=== PATIENT | female | born 1965 | race Caucasian/White ===

== ENCOUNTER 2020-02-26 08:34 | Outpatient (CLI) | payer OTHER, MEDICAID, SELFPAY ==
--- NOTE | 2020-02-26 08:55 | XR_ITS ---
WS: [id number] LATERAL LUMBAR SPINE: 3 view. Lateral radiographs are performed in upright neutral, flexion and extension to the patient's toleranc e. HISTORY: LOW BACK PAIN COMPARISON: None available. 2 mm retrolisthesis of L2 and L3 with no instability during flexion and extension. No fracture. Moder ate disc space narrowing at L4-5 and L5-S1. XR/XR lumbar spine f/e only [id number] IMPRESSION: 1. Mild retrolisthesis of L2 and L3 with no instability. 2. Moderate degenerative disc disease at L4-5 and L5-S1.
--- NOTE | 2020-02-26 08:55 | MR_ITS ---
WS: [id number] MRI LUMBAR SPINE NONCONTRAST HISTORY: LOW BACK PAIN COMPARISON: None available. TECHNIQUE: Sagittal and axial multisequence imaging is submitted. Mild increase in thoracic kyphosis. Small osteophytes and mild disc bulging. Mild LEFT convex curvature the lumbar spine. 2 mm retrolisthesis of L2 and L3. Mild disc space narrow ing and desiccation throughout, most significant at L4-5. There is a small amount of reactive marrow edema along the RIGHT lateral endplates of L4 and L5. No fracture. Conus terminates normally at L1-2 disc level. L1-L2: Normal. L2-L3: Small LEFT paracentral and proximal foraminal disc protrusion. There is very mild encroachment upon the LEFT L3 nerve root and subarticular recess. No central stenosis. L3-L4: Mild diffuse annular disc bulging with mild ligamentum flavum hypertrophy and facet arthritis. Very mild foraminal narrowing due to disc and osteophyte disease. L4-L5: Annular disc bulging with a central moderate disc protrusion deforming the ventral thecal sac. Disc osteophyte disease contributing to mild encroachment into the subarticular recesses bilaterally and mild RIGHT foraminal stenosis. Small amount of fluid in the facet joints. L5-S1: Annular disc bulging is asymmetric to the LEFT. Broad-based disc protrusion centrally extends into the LEFT foramen. Mild encroachment upon the ventral thecal sac. Disc abuts and slightly displac es the LEFT S1 nerve root with mild narrowing of the LEFT foramen. MR/MR lumbar spine wo con* [id number] IMPRESSION: 1. Broad-based disc bulging and osteophytes encroach into the LEFT L5-S1 subar ticular recess with contact on the LEFT S1 nerve root and mild foraminal narrow ing. 2. Disc osteophyte encroachment into the subarticular recesses bilaterally at L4-5 with contact on the nerve roots and mild RIGHT foraminal stenosis. 3. LEFT paracentral and proximal foraminal disc protrusion at L2-3 with mild e ncroachment on the LEFT L3 nerve root in the subarticular recess.
== END 2020-02-26 08:35 | disposition home or self-care (01) ==
LOC: RADWPI 08:38
PROVIDERS: Family Provider Family Medicine; PCP Family Medicine; Visit Provider Nurse Practitioner
DX: M51.36 Other intervertebral disc degeneration, lumbar region (principal); M51.37 Other intervertebral disc degeneration, lumbosacral region; M51.26 Other intervertebral disc displacement, lumbar region; M25.78 Osteophyte, vertebrae
CPT/HCPCS: 72120; 72148

== ENCOUNTER → 2020-08-02 09:59 | Outpatient (BNVA) | payer OTHER, MEDICAID, SELFPAY | PROVIDERS: Family Provider Family Medicine; PCP Family Medicine; Referring Provider Dermatology; Visit Provider Podiatrist Foot & Ankle Surgery | DX: M79.671 Pain in right foot (principal); M79.672 Pain in left foot | CPT/HCPCS: 73630 ==

== ENCOUNTER 2021-04-27 11:12 | Outpatient (CLI) | payer OTHER, MEDICAID, SELFPAY | END 2021-04-27 11:13 | disposition home or self-care (01) | LOC: SPT 11:13 | PROVIDERS: Family Provider Family Medicine; PCP Family Medicine; Visit Provider Podiatrist Foot & Ankle Surgery | DX: Z46.89 Encounter for fitting and adjustment of other specified devices (principal); M79.671 Pain in right foot; M79.672 Pain in left foot; M25.80 Other specified joint disorders, unspecified joint; M21.622 Bunionette of left foot; M72.2 Plantar fascial fibromatosis; M20.41 Other hammer toe(s) (acquired), right foot; M20.42 Other hammer toe(s) (acquired), left foot; Q82.8 Other specified congenital malformations of skin | CPT/HCPCS: 97760; L3030 ==

== ENCOUNTER → 2021-05-19 09:09 | Outpatient (BNVA) | payer OTHER, MEDICAID, SELFPAY | PROVIDERS: Family Provider Family Medicine; PCP Family Medicine; Visit Provider Surgery | DX: Z20.822 Contact with and (suspected) exposure to COVID-19 (principal) | CPT/HCPCS: 87635 ==

== ENCOUNTER 2021-05-25 07:41 | Day surgery (SDC) | payer OTHER, MEDICAID, SELFPAY ==
[2021-05-19 13:40] VITALS: BMI 26.0
--- NOTE | 2021-05-25 07:59 | ANES.PREANE2 ---
Pre-Anesthetic Assessment Pre-Anesthetic Assessment: Height/Weight: Height 1.6 m Weight 66.678 kg Preop Diagnosis: Acid reflux and history of colon polyps Proposed Procedure: Operation Date: 05/25/21 09:00 Proposed Procedures s EGD 42635 75173 K21.9 Z86.010(Not Applicable) - Valeriano Morataya MD p Colonoscopy 70200 63477 K21.9 Z86.010(Not Applicable) - Valeriano Morataya MD Was Beta Carrol taken within 24 hours: N/A Was Clonidine taken within 24 hours: N/A Social: Social History: No alcohol and No tobacco Exam: Pre-Anes Outpt Exam: alert, oriented x 3, clear to auscultation bilaterally and regular rate & rhythm Airway: Submandibular: WNL Cervical ROM: WNL MP: 2 Dentition: Chipped GI: GI: GERD Neuropsych: Neuropsych: Anxiety and Depression Anesthetic Plan: ASA status: 2 Risk of > 500 ml blood loss (7ml/kg in children): No PFSH Anesthesia PFSH: Family History Other Cancer Lung disease Denies family history of Diabetes CAD (coronary artery disease) Clotting disorder Dementia Hyperlipidemia Psychiatric illness Chronic kidney disease (CKD) Suicide Anesthesia complication Bleeding disorder Family history of premature coronary artery disease Hypertension Stroke Social History Alcohol intake: former Lives independently: Yes Household members: none Marital status: Data Anesthesia Cardiac Studies: No Data to Display
[2021-05-25 08:42] VITALS: BP 145/82; PULSE 67; RESP 16; TEMP 36.3; O2SAT 99
[2021-05-25] MEDS: sodium chloride 0.9% 1,000 ML 30 ML IV (09:00)
--- NOTE | 2021-05-25 09:20 | W.PM.OPSFHP ---
Same Day Surgery H&P Indication for Procedure/HPI DATE OF PROCEDURE: May 25, 2021 CHIEF COMPLAINT/INDICATIONFOR SURGICAL PROCEDURE: History of colon polyps PREOP DIAGNOSIS: Acid reflux and history of colon polyps PLANNED PROCEDRUE: Operation Date: 05/25/21 09:00 Proposed Procedures s EGD 25902 08334 K21.9 Z86.010(Not Applicable) - Valeriano Morataya MD p Colonoscopy 18651 61915 K21.9 Z86.010(Not Applicable) - Valeriano Morataya MD 04/07/2021 This is a pleasant 56 years old female patient reports that she had history of colon polyps that was removed before 6 years. He denies bleeding per rectum or weight loss yet she does report that her father had history of colon cancer around age of 70 and her grandpa but she does not remember what age she was diagnosed with colon cancer. She also reports that she has been having persistent acid reflux and she has been on PPI for many years. Patient is referred to my practice today for further evaluation potential intervention. Interim history 05/25/2021. Patient comes today for surveillance colonoscopy and diagnostic EGD. ROS All systems have been reviewed negative except as per the above or per problem list Medications/Allergies* Home Medications Medication Instructions Recorded Confirmed Type aspirin 81 mg tablet,delayed 81 mg PO DAILY 08/02/20 05/25/21 History release budesonide-formoterol HFA 160 2 puff INHALATION Q12H 08/02/20 05/25/21 History mcg-4.5 mcg/actuation aerosol inhaler buspirone 15 mg tablet 15 mg PO BID 08/02/20 05/25/21 History citalopram 40 mg tablet 40 mg PO DAILY 08/02/20 05/25/21 History fluticasone propionate 50 1 spray INTRANASAL BID 08/02/20 05/25/21 History mcg/actuation nasal spray,suspension montelukast 10 mg tablet 10 mg PO DAILY 08/02/20 05/25/21 History multivit with min-folic 1 tab PO DAILY 08/02/20 05/25/21 History acid-lutein 400 mcg-250 mcg chewable tablet pantoprazole 40 mg tablet,delayed 40 mg PO DAILY 08/02/20 05/25/21 History release trazodone 150 mg PO PRN 05/19/21 05/25/21 History Allergies/Adverse Reactions Allergy/AdvReac Type Severity Reaction Status Date / Time adhesive tape Allergy ALGY-Rash Verified 05/25/21 09:21 contact metal agent Allergy Unknown Verified 05/25/21 09:21 latex Allergy ADR-Itching Verified 05/25/21 09:21 nickel AdvReac ADR-Itching Verified 05/25/21 09:21 Current Medications: Generic Name Dose Route Start Last Admin Trade Name Freq PRN Reason Stop Dose Admin Sodium Chloride 1,000 mls @ 30 mls/hr 05/25/21 08:00 05/25/21 09:00 Sodium Chloride 0.9% IV 05/26/21 07:59 30 mls/hr .Q24H BESS Administration Pertinent History/Comorbid Conditions* Family History (Updated 08/02/20 @ 10:16 by Giovanna Low LPN) Lung disease Cancer Denies family history of Diabetes CAD (coronary artery disease) Clotting disorder Dementia Hyperlipidemia Psychiatric illness Chronic kidney disease (CKD) Suicide Anesthesia complication Bleeding disorder Family history of premature coronary artery disease Hypertension Stroke Social History Alcohol intake: former Lives independently: Yes Household members: none Marital status: Pertinent Exam Findings alert, oriented x 3, clear to auscultation bilaterally, regular rate & rhythm and procedure specific exam findings (Abdominal examination nontender nondistended soft) Recommendations Surgery/Procedure today (Diagnostic EGD and surveillance colonoscopy) Other Plans: Plan of care; After thorough history and physical examination and reviewing the chart, plan to perform a diagnostic esophagogastroduodenoscopy and diagnostic colonoscopy with possible biopsy and possible polypectomy. I discussed with the patient in detail the risks,benefits,alternatives and indications.The risk of aspiration, bleeding, soft tissue injury, perforation of the stomach/esophagus/colon and other potential concomitant complications were explained to the patient in details also the potential need for Thoracotomy and or Laproscoy/Laparotomy to repair any related complications including but not limited to colectomy and or Closotomy. The patient understood this well and did agree to proceed. Rationale was carefully and clearly discussed with the patient.Appropriate informed consent have been reviewed and signed Verbal and written Instructions were given to the patient for colonoscopy prep Coding Level of Care Code Acute Visitor Services Representative for Stephenie Suero
[2021-05-25 10:24] VITALS: BP 123/79; PULSE 97; RESP 16; TEMP 36.3; O2SAT 100
[2021-05-25 10:37] VITALS: BP 108/53; PULSE 82; RESP 18; O2SAT 100
--- NOTE | 2021-05-25 11:20 | ANE.PACU2 ---
Inpatient post-anesthesia follow up: Airway intact: Yes Vital signs: Temperature 97.3 F Pulse Rate 82 Respiratory Rate 18 Blood Pressure 108/53 Pulse Oximetry 100 Oxygen Delivery Me thod Room Air Oxygen Flow Rate 4 Fraction of Inspir ed Oxygen Hydration adequate: Yes Nausea and vomiting: No Pain level: 1 Mental status: Baseline
[2021-05-26 13:11] LABS: H. Pylori / CLO Test Negative
== END 2021-05-25 10:44 | disposition home or self-care (01) ==
PROVIDERS: PCP Family Medicine; Visit Provider Surgery
PROC: 0DJ08ZZ Inspection of Upper Intestinal Tract, Via Natural or Artificial Opening Endoscopic (ICD-10-PCS; CPT 43235; principal; 2021-05-25 09:00)
PROC: 0DJD8ZZ Inspection of Lower Intestinal Tract, Via Natural or Artificial Opening Endoscopic (ICD-10-PCS; CPT 45378; 2021-05-25 09:00)
DX: Z86.010 Personal history of colon polyps (principal); K21.00 Gastro-esophageal reflux disease with esophagitis, without bleeding; K44.9 Diaphragmatic hernia without obstruction or gangrene; K29.70 Gastritis, unspecified, without bleeding; D12.2 Benign neoplasm of ascending colon; F41.9 Anxiety disorder, unspecified; F32.9 Major depressive disorder, single episode, unspecified
CPT/HCPCS: 43239; 45380; 87077; 88305; 96360; J2704; J7030

== ENCOUNTER 2022-06-01 08:42 | Outpatient (CLI) | payer MEDICARE, MEDICAID, SELFPAY ==
--- NOTE | 2022-06-01 08:54 | MM_ITS ---
WS: [id number] Bilateral screening 3D tomosynthesis digital mammogram, 06/01/2022 Clinical Data: SCREENING Comparison: 05/04/2021, 03/25/2020. Findings: The breast parenchymal pattern shows fibroglandular tissue. No spiculated masses or clustered calcifi cations are seen. There are no secondary signs of carcinoma. There are benign calcifications in the u pper outer quadrant of the left breast unchanged. There is a mole marker in the left axilla. MM/[place] [id number] Impression: 1. Negative bilateral mammogram unchanged. 2. Recommend annual screening mammograms. BIRADS: 1-Negative FOLLOW UP: 1 Year Follow-up The CAD security checker was used.
== END 2022-06-01 08:43 | disposition home or self-care (01) ==
LOC: RAD 08:43
PROVIDERS: PCP Nurse Practitioner Family; Visit Provider Nurse Practitioner Family
DX: Z12.31 Encounter for screening mammogram for malignant neoplasm of breast (principal)
CPT/HCPCS: 77063; 77067

== ENCOUNTER 2022-06-07 10:15 | Outpatient (CLI) | payer MEDICARE, MEDICAID, SELFPAY | END 2022-06-07 10:16 | disposition home or self-care (01) | LOC: SPT 10:17 | PROVIDERS: PCP Nurse Practitioner Family; Visit Provider Podiatrist Foot & Ankle Surgery | DX: Q82.8 Other specified congenital malformations of skin (principal); Z46.89 Encounter for fitting and adjustment of other specified devices; M72.2 Plantar fascial fibromatosis; M25.80 Other specified joint disorders, unspecified joint; L84 Corns and callosities | CPT/HCPCS: 17110; 99213; L3030 ==

== ENCOUNTER → 2022-11-27 08:28 | Outpatient (BNVA) | payer MEDICARE, MEDICAID, SELFPAY | PROVIDERS: PCP Nurse Practitioner Family; Visit Provider Podiatrist Foot & Ankle Surgery | DX: Q82.8 Other specified congenital malformations of skin (principal) | CPT/HCPCS: 17110 ==

== ENCOUNTER → 2022-12-26 07:55 | Outpatient (BNVA) | payer MEDICARE, MEDICAID, SELFPAY | PROVIDERS: PCP Nurse Practitioner Family; Visit Provider Podiatrist Foot & Ankle Surgery | DX: Q82.8 Other specified congenital malformations of skin (principal) | CPT/HCPCS: 99213 ==

== ENCOUNTER → 2023-03-14 08:01 | Outpatient (BNVA) | payer MEDICARE, MEDICAID, SELFPAY | PROVIDERS: PCP Nurse Practitioner Family; Visit Provider Podiatrist Foot & Ankle Surgery | DX: M79.671 Pain in right foot | CPT/HCPCS: 99213 ==

== ENCOUNTER → 2023-09-18 12:45 | Outpatient (BNVA) | payer MEDICARE, MEDICAID, SELFPAY | PROVIDERS: PCP Nurse Practitioner Family; Visit Provider Podiatrist Foot & Ankle Surgery | DX: Q82.8 Other specified congenital malformations of skin (principal); L60.3 Nail dystrophy | CPT/HCPCS: 17110 ==

== ENCOUNTER → 2024-01-02 08:56 | Outpatient (BNVA) | payer MEDICARE, MEDICAID, SELFPAY | PROVIDERS: PCP Nurse Practitioner Family; Visit Provider Podiatrist Foot & Ankle Surgery | DX: Q82.8 Other specified congenital malformations of skin (principal) | CPT/HCPCS: 17110 ==

== ENCOUNTER → 2024-01-22 14:05 | Outpatient (BNVA) | payer MEDICARE, MEDICAID, SELFPAY | PROVIDERS: PCP Nurse Practitioner Family; Visit Provider Podiatrist Foot & Ankle Surgery | DX: M21.70 Unequal limb length (acquired), unspecified site (principal); M72.2 Plantar fascial fibromatosis; Z46.89 Encounter for fitting and adjustment of other specified devices; Q82.8 Other specified congenital malformations of skin; M25.80 Other specified joint disorders, unspecified joint | CPT/HCPCS: 77073; 99213 ==

== ENCOUNTER 2024-01-22 15:44 | Outpatient (CLI) | payer MEDICARE, MEDICAID, SELFPAY | END 2024-01-22 15:45 | disposition home or self-care (01) | LOC: SPT 15:45 | PROVIDERS: PCP Nurse Practitioner Family; Visit Provider Podiatrist Foot & Ankle Surgery | DX: Z46.89 Encounter for fitting and adjustment of other specified devices (principal); Q82.8 Other specified congenital malformations of skin; M25.80 Other specified joint disorders, unspecified joint; M72.2 Plantar fascial fibromatosis | CPT/HCPCS: 97760; L3030 ==

== ENCOUNTER → 2024-02-05 07:57 | Outpatient (BNVA) | payer MEDICARE, MEDICAID, SELFPAY | PROVIDERS: PCP Nurse Practitioner Family; Visit Provider Podiatrist Foot & Ankle Surgery | DX: Z09 Encounter for follow-up examination after completed treatment for conditions other than malignant neoplasm (principal); M21.70 Unequal limb length (acquired), unspecified site; M72.2 Plantar fascial fibromatosis | CPT/HCPCS: 99213 ==

== ENCOUNTER → 2024-03-24 12:43 | Outpatient (BNVA) | payer MEDICARE, MEDICAID, SELFPAY | PROVIDERS: PCP Nurse Practitioner Family; Visit Provider Podiatrist Foot & Ankle Surgery | DX: Z09 Encounter for follow-up examination after completed treatment for conditions other than malignant neoplasm (principal); M21.70 Unequal limb length (acquired), unspecified site; Q82.8 Other specified congenital malformations of skin | CPT/HCPCS: 99213 ==

== ENCOUNTER 2024-03-26 08:16 | Outpatient (RCR) | payer MEDICARE, MEDICAID, SELFPAY | END 2024-03-29 18:00 | disposition home or self-care (01) | LOC: SPT 08:16 | PROVIDERS: PCP Nurse Practitioner Family; Visit Provider Family Medicine | DX: M51.36 Other intervertebral disc degeneration, lumbar region (principal); M48.061 Spinal stenosis, lumbar region without neurogenic claudication; M47.26 Other spondylosis with radiculopathy, lumbar region | CPT/HCPCS: 97161 ==

== ENCOUNTER → 2024-05-29 07:58 | Outpatient (BNVA) | payer MEDICARE, MEDICAID, SELFPAY | PROVIDERS: PCP Nurse Practitioner Family; Visit Provider Student in an Organized Health Care Education/Training Program | DX: K44.9 Diaphragmatic hernia without obstruction or gangrene (principal); R19.4 Change in bowel habit; R11.2 Nausea with vomiting, unspecified; Z80.0 Family history of malignant neoplasm of digestive organs | CPT/HCPCS: 99204 ==

== ENCOUNTER 2024-06-03 11:31 | Day surgery (SDC) | payer MEDICARE, MEDICAID, SELFPAY ==
[2024-06-03] MEDS: sodium chloride 0.9% 1,000 ML 30 ML IV (12:01)
[2024-06-03 12:03] VITALS: BP 129/71; PULSE 69; RESP 16; TEMP 36.6; O2SAT 98
--- NOTE | 2024-06-03 12:33 | ANES.PREANE2 ---
Pre-Anesthetic Assessment Height/Weight: Height 1.6 m Weight 46.266 kg Temp Pulse Resp BP Pulse Ox O2 Del Method 97.8 F 69 16 129/71 98 Room Air 06/03/24 12:03 06/03/24 12:03 06/03/24 12:03 06/03/24 12:03 06/03/24 12:03 06/03/24 12:03 Operation Date: 06/03/24 12:45 Proposed Procedures p EGD- 4 3235, K46.9(Not Applicable) - Stephen Guzman MD Familial anesthetic complications: Sometimes hard to wake up Was Beta Carrol taken within 24 hours: N/A Was Clonidine taken within 24 hours: N/A Last intake: Intake Last Liquid Date 06/03/24 Last Liquid Time 07:30 Last Solid Date 06/02/24 Last Solid Time 20:00 Social No alcohol and No tobacco Exam alert, oriented x 3, clear to auscultation bilaterally and regular rate & rhythm Airway Mallampati: Class II Dentition: chipped GI Gastroesophageal Reflux Disease Anesthetic Plan ASA status: 2 Anesthesia: MAC Risk of > 500 ml blood loss (7ml/kg in children): No Medications/Allergies Home Medications Medication Instructions Recorded Confirmed Last Taken Type budesonide-formoterol HFA 160 2 puff inhalation Q12H 08/02/20 06/03/24 06/03/24 History mcg-4.5 mcg/actuation aerosol inhaler (Symbicort) buspirone 15 mg tablet 15 mg PO BID 08/02/20 06/02/24 06/02/24 History citalopram 40 mg tablet (Celexa) 40 mg PO DAILY 08/02/20 06/02/24 06/02/24 History fluticasone propionate 50 1 spray intranasal DAILY 08/02/20 06/02/24 06/02/24 History mcg/actuation nasal spray,suspension montelukast 10 mg tablet 10 mg PO DAILY 08/02/20 06/02/24 06/02/24 History (Singulair) multivit with min-folic 1 tab PO DAILY 08/02/20 06/02/24 06/01/24 History acid-lutein 400 mcg-250 mcg chewable tablet (Centrum Silver) Sole supports #1 ea 02/05/24 05/29/24 Unknown Rx baclofen 10 mg tablet 10 mg PO DAILY 10/31/24 11/04/24 11/04/24 History cetirizine 10 mg tablet 10 mg PO DAILY 05/29/24 06/02/24 06/02/24 History esomeprazole magnesium 20 mg 20 mg PO BID 05/29/24 06/02/24 06/02/24 History capsule,delayed release meloxicam 15 mg tablet 15 mg PO DAILY 05/29/24 06/02/24 06/01/24 History oxybutynin chloride 10 mg 10 mg PO DAILY 05/29/24 06/02/24 06/02/24 History tablet,extended release 24 hr sucralfate 100 mg/mL oral 10 ml PO BID 8 weeks #1,120 mL 05/29/24 06/02/24 06/02/24 Rx suspension pantoprazole 40 mg tablet,delayed 40 mg PO BID 06/02/24 06/02/24 06/02/24 History release trazodone 100 mg tablet 200 mg PO DAILY 06/02/24 06/02/24 06/01/24 History Allergies Allergy/AdvReac Type Severity Reaction Status Date / Time adhesive tape Allergy ALGY-Rash Verified 06/02/24 10:52 contact metal agent Allergy Unknown Verified 06/02/24 10:52 latex Allergy ADR-Itching Verified 06/02/24 10:52 nickel AdvReac ADR-Itching Verified 06/02/24 10:52 Current Medications Generic Name Dose Route Start Last Admin Trade Name Freq PRN Reason Stop Dose Admin Sodium Chloride 1,000 mls @ 30 mls/hr 06/03/24 12:00 06/03/24 12:01 Sodium Chloride 0.9% IV 30 mls/hr .Q24H BESS Administration PFSH Anesthesia Medical History Gastritis Acid reflux disease History of colon polyps Family History Other Cancer Lung disease Denies family history of Diabetes CAD (coronary artery disease) Clotting disorder Dementia Hyperlipidemia Psychiatric illness Chronic kidney disease (CKD) Suicide Anesthesia complication Bleeding disorder Family history of premature coronary artery disease Hypertension Stroke Social History Smoking and tobacco/nicotine status: former use of tobacco/nicotine Alcohol intake: former Substance/Drug Use: never Lives independently: Yes Household members: none Marital status: Data Anesthesia Cardiac Studies: No Data to Display
--- NOTE | 2024-06-03 13:14 | W.PM.OPSUD ---
Surgery/Procedure H&P Update DATE OF PROCEDURE: June 03, 2024 DATE H&P PERFORMED: 05/29/24 H&P UPDATE INFORMATION: I have reviewed H&P completed within last 30 days, I have examined patient prior to procedure and No changes to prior documentation PLANNED PROCEDURE: Operation Date: 06/03/24 12:45 Proposed Procedures p EGD- 4 3235, K46.9(Not Applicable) - Stephen Guzman MD
[2024-06-03 13:41] VITALS: BP 148/79; PULSE 93; RESP 18; TEMP 36.1; O2SAT 93
--- NOTE | 2024-06-03 13:44 | ANE.PACU2 ---
Inpatient post-anesthesia follow up: Airway intact: Yes Vital signs: Temperature 97.8 F Pulse Rate 69 Respiratory Rate 16 Blood Pressure 129/71 Pulse Oximetry 98 Oxygen Delivery Me thod Room Air Oxygen Flow Rate Fraction of Inspir ed Oxygen Hydration adequate: Yes Nausea and vomiting: No Pain level: 1 Mental status: Baseline
[2024-06-03 13:57] VITALS: BP 115/69; PULSE 95; RESP 16; O2SAT 98
== END 2024-06-03 14:16 | disposition home or self-care (01) ==
PROVIDERS: PCP Nurse Practitioner Family; Visit Provider Student in an Organized Health Care Education/Training Program
PROC: 0DJ08ZZ Inspection of Upper Intestinal Tract, Via Natural or Artificial Opening Endoscopic (ICD-10-PCS; CPT 43235; principal; 2024-06-03 12:45)
DX: K21.9 Gastro-esophageal reflux disease without esophagitis (principal); K44.9 Diaphragmatic hernia without obstruction or gangrene; Z79.82 Long term (current) use of aspirin; Z86.0100 Personal history of colon polyps, unspecified; Z87.891 Personal history of nicotine dependence; K29.70 Gastritis, unspecified, without bleeding
CPT/HCPCS: 43239; 88305; J2704; J7030

== ENCOUNTER 2024-06-09 08:46 | Emergency (ER) | payer MEDICARE, MEDICAID, SELFPAY ==
--- NOTE | 2024-06-09 09:02 | CT_ITS ---
WS: [id number] CT ABDOMEN AND PELVIS WITH CONTRAST HISTORY: abd pain, pain for 6 weeks. TECHNIQUE: Imaging performed of the abdomen and pelvis with IV contrast. Single phase imaging of the abdomen. Coronal and sagittal reformats are submitted. All CT scans at [facility] use at [address] one of these dose optimization techniques: automated exposure control; mA and/or kV adjustment per patient size (includes targeted exams where dose is matched to clinical indication); or iterative re construction. IV CONTRAST: Omnipaque 350; 100 mL IV. Oral contrast: No DLP: 293.88 mGy.cm COMPARISON: None available. Lower thorax: Lung bases are clear. Heart is normal size. No hiatal hernia. Liver/biliary system: Normal size with no intrahepatic dilatation. Gallbladder: Status post cholecystectomy. Pancreas: Normal size pancreas and pancreatic duct. No adjacent inflammation. Spleen: Normal size spleen. No mass or infarct. Adrenal glands: Normal. Right kidney: Normal. Left kidney: Mild fullness in the LEFT renal pelvis. There is no medullary dilatation. This may be a small extrapelvic cyst. Aorta: Normal. Lymphadenopathy: None. Free fluid: None. GI tract: Stomach is not distended. Fluid distended loops of small bowel. There is only mild dilatati on of small bowel loops up to 2.7 cm. These loops are predominantly within the pelvis. Marked constip ation. Colon is dilated diffusely. Focal area of increased density in a loop of small bowel in the pe lvis. This may be a calcification. This also could be a site of bleeding or medicinal. This nodule me asures 6 mm. Abdominal wall: Unremarkable abdominal wall. No hernia. Pelvis: Atrophic uterus. Bones: Mild narrowing of the hip joints. CT/CT abdomen pelvis w con* [id number] IMPRESSION: 1. No free air or free fluid. 2. Mildly dilated small bowel loops. No sign of obstruction is identified. The re is an additional intraluminal 6 mm hyperdensity nodule in the lumen of the d istal loop of small bowel. This may be a calcified nodule or polyp. Additional etiologies considered are medicinal tablet that is partially dissolved versus s ite of bleeding. 3. Prior cholecystectomy and appendectomy. 4. Marked constipation.
--- NOTE | 2024-06-09 09:03 | ED_ITS ---
HPI - Abdominal Pain 2 General: Chief Complaint: Abdominal Pain Stated Complaint: abd pain Time Seen by Provider: 06/09/24 08:53 History of Present Illness: 59-year-old female who presents to the e mergency room with complaint of abdominal pain and reflux. She had seen Dr. Guzman around May 29. She has a known history of significant reflux had increasing heartburn she reports 30 pound weight loss in the previous 3 months. She is complaining of abdominal pain and cramping. She has bilious vomit she denies any medic easy melena hematemesis or coffee-ground emesis. She had a known hiatal hernia from previous. She was on pantoprazole and taking sucralfate 3 times daily for weeks. EGD was done showed some moderate gastritis, No significant abnormalities in the duodenum. No active bleeding no ulcers. There is no mention of hiatal hernia on the EGD report. Patient is continued on the Protonix and the sucralfate but despite this has continued difficulty with nausea vomiting abdominal pain. She has previously had cholecystectomy and appendectomy. Associated Symptoms: Reports nausea and vomiting; Denies chills, dysuria, fever(s), hematochezia, hematemesis and melena Related Data Home Medications Medication Instructions Recorded Confirmed budesonide-formoterol HFA 160 2 puff inhalation Q12H 08/02/20 06/09/24 mcg-4.5 mcg/actuation aerosol inhaler (Symbicort) buspirone 15 mg tablet 15 mg PO BID 08/02/20 06/09/24 citalopram 40 mg tablet (Celexa) 40 mg PO DAILY 08/02/20 06/09/24 fluticasone propionate 50 1 spray intranasal DAILY 08/02/20 06/09/24 mcg/actuation nasal spray,suspension montelukast 10 mg tablet 10 mg PO DAILY 08/02/20 06/09/24 (Singulair) multivit with min-folic 1 tab PO DAILY 08/02/20 06/09/24 acid-lutein 400 mcg-250 mcg chewable tablet (Centrum Silver) baclofen 10 mg tablet 10 mg PO DAILY 05/29/24 06/09/24 cetirizine 10 mg tablet 10 mg PO DAILY 05/29/24 06/09/24 oxybutynin chloride 10 mg 10 mg PO DAILY 05/29/24 06/09/24 tablet,extended release 24 hr trazodone 100 mg tablet 200 mg PO BEDTIME 06/02/24 06/09/24 azelastine 137 mcg (0.1 %) nasal 1 spray intranasal DAILY 06/09/24 06/09/24 spray gabapentin 100 mg capsule 100 mg PO TID 06/09/24 06/09/24 Previous Rx's Medication Instructions Recorded Sole supports #1 ea 02/05/24 sucralfate 100 mg/mL oral 10 ml PO BID 8 weeks #1,120 mL 05/29/24 suspension lactulose 10 gram/15 mL oral 30 g (45 mL) PO Q2H 24 hours #540 06/09/24 solution mL pantoprazole 40 mg tablet,delayed 40 mg PO BID #60 tabs 06/09/24 release Allergies Allergy/AdvReac Type Severity Reaction Status Date / Time adhesive tape Allergy ALGY-Rash Verified 06/02/24 10:52 contact metal agent Allergy Unknown Verified 06/02/24 10:52 latex Allergy ADR-Itching Verified 06/02/24 10:52 nickel AdvReac ADR-Itching Verified 06/02/24 10:52 Review of Systems 2 Const: Denies: fever(s) or chills Card: Denies: chest pain Resp: Denies: dyspnea GI: Reports: abdominal pain, nausea and vomiting; Denies: hematemesis, hematochezia or melena : Denies: dysuria, urinary frequency or urinary urgency Musc: Denies: neck pain or back pain Skin/Breast: Denies: rash PFSH ED 2 PFSH: Medical History Gastritis Acid reflux disease History of colon polyps Family History Other Cancer Lung disease Denies family history of Diabetes CAD (coronary artery disease) Clotting disorder Dementia Hyperlipidemia Psychiatric illness Chronic kidney disease (CKD) Suicide Anesthesia complication Bleeding disorder Family history of premature coronary artery disease Hypertension Stroke Social History Smoking and tobacco/nicotine status: former use of tobacco/nicotine Alcohol intake: former Substance/Drug Use: never Lives independently: Yes Household members: none Marital status: Physical Exam 2 Const: COMMON NORMALS: no acute distress GENERAL APPEARANCE: cooperative and comfortable ORIENTATION/CONSCIOUSNESS: Yes awake, Yes oriented to person, Yes oriented to place and Yes oriented to time HENMT: COMMON NORMALS: normocephalic, atraumatic and hearing grossly normal bilaterally HEAD & SCALP: normocephalic and atraumatic Resp: COMMON NORMALS: normal respiratory effort, No retractions, No use of accessory muscles and clear to auscultation bilaterally AUSCULTATION: clear to auscultation bilaterally Cardio: COMMON NORMALS: regular rate, regular rhythm and No murmurs present (Cardio) RATE: regular rate RHYTHM: regular rhythm GI: COMMON NORMALS: Soft to palpation and No hepatosplenomegaly present A USCULTATION: Yes normoactive bowel sounds PALPATION: Yes Soft to palpation, No Tenderness to palpation present (GI), No Guarding due to palpation present (GI) and Yes No hepatosplenomegaly present Extremity: COMMON NORMALS: normal to inspection, capillary refill normal, no clubbing, cyanosis or edema, no calf tenderness and no pedal edema Neuro: SENSORIUM/ORIENTATION: Yes oriented to person, Yes oriented to place and Yes oriented to time Skin: COMMON NORMALS: no rashes or lesions noted GENERAL SKIN EXAM: no rashes or lesions noted Course 2 Vital Signs: Vital signs: Vital Signs Temperature 98.2 F 06/09/24 09:06 Pulse Rate 71 06/09/24 11:42 Respiratory Rate 18 06/09/24 09:06 Blood Pressure 141/73 06/09/24 11:42 Pulse Oximetry 98 06/09/24 11:42 Oxygen Delivery Me thod Room Air 06/09/24 11:40 MDM - Abdominal Pain Medical Decision Making Patient mentioned that she had a hiatal hernia I do not see 1 mention on her EGD report it is specifically evaluated for and is not present on the CT done today. By history and on her labs there is no evidence of active bleeding certainly was not any significant ulceration on the recent EGD. This point recommend stopping the meloxicam as it could actually worsen things she seems to be very sensitive to any potential stomach irritants. Will have her stop the omeprazole and start her on Protonix 40 twice daily to continue the Carafate. She was also notably constipated will use lactulose 1 dose every 2 hours till desired results achieved. Reviewed findings with the patient discharged home Medical Records I reviewed the patient's medical records. Lab Data I reviewed the patient's lab results. 06/09/24 08:59 06/09/24 08:59 Labs/Radiology: Radiology Impressions Abdomen/Pelvis CT 06/09/24 09:02 IMPRESSION: 1. No free air or free fluid. 2. Mildly dilated small bowel loops. No sign of obstruction is identified. There is an additional intraluminal 6 mm hyperdensity nodule in the lumen of the distal loop of small bowel. This may be a calcified nodule or polyp. Additional etiologies considered are medicinal tablet that is partially dissolved versus site of bleeding. 3. Prior cholecystectomy and appendectomy. 4. Marked constipation. Laboratory Results WBC 4.66 10^3/uL (3.29-11.43) 06/09/24 08:59 RBC 3.91 10^6/uL (3.85-5.65) 06/09/24 08:59 Hgb 12.80 g/dL (11.27-16.99) 06/09/24 08:59 Hct 36.2 % (36-47) 06/09/24 08:59 MCV 92.6 fl (85-98) 06/09/24 08:59 MCH 32.7 pg (27-33) 06/09/24 08:59 MCHC 35.4 g/dL (30-55) 06/09/24 08:59 RDW 13.0 % (12.1-15.1) 06/09/24 08:59 Plt Count 198 10^3/cmm (157-399) 06/09/24 08:59 MPV 8.6 fL (7.4-10.4) 06/09/24 08:59 Neut % (Auto) 63.8 % 06/09/24 08:59 Lymph % (Auto) 24.0 % 06/09/24 08:59 Cannon % (Auto) 10.1 % 06/09/24 08:59 Eos % (Auto) 1.3 % 06/09/24 08:59 Baso % (Auto) 0.4 % 06/09/24 08:59 Neut # (Auto) 2.97 10^3/uL (1.8-7.7) 06/09/24 08:59 Lymph # (Auto) 1.1 10^3/uL (0.8-4.8) 06/09/24 08:59 Cannon # (Auto) 0.5 10^3/uL (0.2-0.9) 06/09/24 08:59 Eos # (Auto) 0.1 10^3/uL (0.0-0.8) 06/09/24 08:59 Baso # (Auto) 0.0 10^3/uL (0.0-0.1) 06/09/24 08:59 Nucleated RBC % (auto) 0 % 06/09/24 08:59 Nucleated RBCs # 0.0 /100WBC 06/09/24 08:59 Sodium 133 mmol/L (136-145) L 06/09/24 08:59 Potassium 4.0 mmol/L (3.5-5.1) 06/09/24 08:59 Chloride 96 mmol/L (98-107) L 06/09/24 08:59 Carbon Dioxide 25 mmol/L (22-29) 06/09/24 08:59 Anion Gap 16.0 (5-19) 06/09/24 08:59 BUN 12 mg/dL (8-23) 06/09/24 08:59 Creatinine 0.7 mg/dL (0.5-0.9) 06/09/24 08:59 GFR Calculation 85.4 mL/min (90-130) L 06/09/24 08:59 Glucose 90 mg/dL (65-115) 06/09/24 08:59 Calculated Osmolality 275 mOsm/kg (285-295) L 06/09/24 08:59 Lactic Acid 1.2 mmol/L (0.5-2.2) 06/09/24 08:59 Calcium 9.5 mg/dL (8.5-10.5) 06/09/24 08:59 Total Bilirubin 0.3 mg/dL (0.15-1.2) 06/09/24 08:59 AST 20 U/L (0-32) 06/09/24 08:59 ALT 18 U/L (0-33) 06/09/24 08:59 Alkaline Phosphatase 64 U/L (35-105) 06/09/24 08:59 Total Protein 7.0 g/dL (6.6-8.7) 06/09/24 08:59 Albumin 4.7 g/dL (3.5-5.2) 06/09/24 08:59 Globulin 2.3 g/dL (1.3-4.6) 06/09/24 08:59 Lipase 28 U/L (13-60) 06/09/24 08:59 Urine Color Yellow (Yellow) 06/09/24 09:32 Urine Appearance Clear (CLEAR) 06/09/24 09:32 Urine pH 7.5 (5-7) 06/09/24 09:32 Ur Specific [place] 1.007 (1.005-1.030) 06/09/24 09:32 Urine Protein Negative (Negative) 06/09/24 09:32 Urine Glucose (UA) Negative (Normal) 06/09/24 09:32 Urine Ketones Negative (Negative) 06/09/24 09:32 Urine Blood 1+ (Negative) A 06/09/24 09:32 Urine Nitrate Negative (Negative) 06/09/24 09:32 Urine Bilirubin Negative (Negative) 06/09/24 09:32 Urine Urobilinogen 0.2 mg/dL (Negative) 06/09/24 09:32 Ur Leukocyte Esterase Negative (Negative) 06/09/24 09:32 Urine RBC 6-10 /hpf (0-2) 06/09/24 09:32 Urine WBC 0-5 /hpf (0-5) 06/09/24 09:32 Ur Squamous Epith Cells 0-5 /hpf (0-5) 06/09/24 09:32 Amorphous Sediment Not Reportable 06/09/24 09:32 Urine Bacteria None seen /hpf (NONE) 06/09/24 09:32 Hyaline Casts 0-4 /lpf H 06/09/24 09:32 All radiology interpretation(s) finalized by discharge Discharge Plan Discharge Patient Disposition: Home Clinical Impression: Chronic GERD, Constipation Condition: Stable Prescriptions: New lactulose 10 gram/15 mL solution 30 g PO Q2H 1 Days Qty: 540 0RF Rx Instructions: until desired laxative effect pantoprazole 40 mg tablet,delayed release (DR/EC) 40 mg PO BID Qty: 60 0RF Discontinued meloxicam 15 mg tablet 15 mg PO DAILY esomeprazole magnesium 20 mg capsule,delayed release(DR/EC) 20 mg PO BID pantoprazole 40 mg tablet,delayed release (DR/EC) 40 mg PO BID No Action citalopram [Celexa] 40 mg tablet 40 mg PO DAILY budesonide-formoterol [Symbicort] 160-4.5 mcg/actuation HFA aerosol inhaler 2 puff inhalation Q12H fluticasone propionate 50 mcg/actuation spray,suspension 1 spray intranasal DAILY Rx Instructions: administer into each nostril montelukast [Singulair] 10 mg tablet 10 mg PO DAILY Centrum Silver 400-250 mcg tablet,chewable 1 tab PO DAILY buspirone 15 mg tablet 15 mg PO BID baclofen 10 mg tablet 10 mg PO DAILY cetirizine 10 mg tablet 10 mg PO DAILY oxybutynin chloride 10 mg tablet extended release 24hr 10 mg PO DAILY sucralfate 100 mg/mL suspension 10 ml PO BID 56 Days Qty: 1120 0RF Rx Instructions: swish in mouth and swallow; use after food/drink (DME) Sole supports See Rx Instructions .Route .MEDSUPPLY Qty: 1 0RF Rx Instructions: As directed trazodone 100 mg Tablet 200 mg PO BEDTIME gabapentin 100 mg capsule 100 mg PO TID azelastine 137 mcg (0.1 %) spray,non-aerosol 1 spray INTRANASAL DAILY Discharge Orders: Discharge ED (Routine); Ordered 06/09/24 Ordered By: Isrrael Dahl Referrals: Anay Martinez FNP [Primary Care Provider] - Discharge Diet: Usual diet Discharge Activity: Resume usual activity Patient Instructions: Diet for Stomach Ulcers and Gastritis (ED), GERD (Gastroesophageal Reflux Disease) (ED), Opioid Safety, Pain Management Activity Restrictions/Additional Instructions: Thank you for choosing [facility] for your healthcare needs today. It is very important that you follow up as instructed or that you return to the Emergency Department should you have concerns or if your condition changes or worsens in any way. You are seen in the emergency room with complaints of abdominal pain. Your recent EGD was reviewed and we repeated a CT scan of your abdomen. On the CT scan there is no hiatal hernia was no hiatal hernia noted at the time of the EGD either. The EGD had showed some mild gastritis. There is no sign of active bleeding in your stomach we did see some radiographic evidence in the duodenum what was most likely the sole Carafate. Reviewing your medications would recommend that you not take meloxicam anymore as this can worsen your stomach. Additionally switch to Protonix 40 mg twice a day to help protect your stomach you can continue to sell Carafate but should not take it within an hour of taking a dose of your pantoprazole. Finally it was noted that you are quite constipated on the CT recommend to use lactulose 1 dose every 2 hours until adequate results achieved. You should follow-up with Dr. Guzman or with your primary care doctor if your symptoms persist you may need to have further evaluation including possible referral to gastroenterology Coding Level of Care Code ED Motion Picture Set Up Worker for Stephenie Suero
[2024-06-09 09:06] VITALS: BP 140/82; PULSE 72; RESP 18; TEMP 36.8; O2SAT 97; BMI 19.6
[2024-06-09] MEDS: pantoprazole 40 mg SDV 80 MG IVP (09:16)
[2024-06-09 09:25] LABS: Basophils % 0.4 %; Eosinophils # 0.1 10^3/uL (0.0-0.8); Eosinophils % 1.3 %; Hematocrit 36.2 % (36-47); Lymphocytes # 1.1 10^3/uL (0.8-4.8); Mean Corpuscular HGB Conc 35.4 g/dL (30-55); Mean Corpuscular Hemoglobin 32.7 pg (27-33); Mean Corpuscular Volume 92.6 fl (85-98); Mean Platelet Volume 8.6 fL (7.4-10.4); Monocytes # 0.5 10^3/uL (0.2-0.9); Monocytes % 10.1 %; Neutrophils # 2.97 10^3/uL (1.8-7.7); Neutrophils % 63.8 %; Nucleated Red Blood Cells % 0 %; Platelet Count 198 10^3/cmm (157-399); Red Blood Count 3.91 10^6/uL (3.85-5.65); White Blood Count 4.66 10^3/uL (3.29-11.43)
[2024-06-09 09:31] LABS: Lactic Sepsis W/Reflex 1.2 mmol/L (0.5-2.2)
[2024-06-09 09:32] LABS: Alanine Aminotransferase 18 U/L (0-33); Albumin Level 4.7 g/dL (3.5-5.2); Alkaline Phosphatase 64 U/L (35-105); Aspartate Amino Transferase 20 U/L (0-32); Blood Urea Nitrogen 12 mg/dL (8-23); Calcium 9.5 mg/dL (8.5-10.5); Carbon Dioxide 25 mmol/L (22-29); Chloride 96 mmol/L (98-107); Creatinine Clr Calc Pharmacy 69.5915; Globulin 2.3 g/dL (1.3-4.6); Glomerular Filtration Rate 85.4 mL/min (90-130); Glucose 90 mg/dL (65-115); Lipase 28 U/L (13-60); Osmolality Calculated 275 mOsm/kg (285-295); Sodium 133 mmol/L (136-145); Total Bilirubin 0.3 mg/dL (0.15-1.2)
[2024-06-09 09:36] VITALS: BP 133/95; PULSE 65; O2SAT 97
--- NOTE | 2024-06-09 09:41 | PC.PHAR ---
Pt has new medications Gabapentin 100mg-06/08/24, azelastine 137-06/02/24, and protonix 40mg 06/02/24. Pt states does not take protonix just takes Nexium and Carafate. Left Protonix on pt med list.
[2024-06-09 09:44] LABS: Bilirubin Urine Negative (Negative); Blood Urine 1+ (Negative); Glucose Urine UA Negative (Normal); Ketones Urine Negative (Negative); Leukocyte Esterase Urine Negative (Negative); Nitrate Urine Negative (Negative); Protein Urine Negative (Negative); Specific Gravity, Urine 1.007 (1.005-1.030); Urine Appearance Clear (CLEAR); Urine Color Yellow (Yellow); Urobilinogen Urine 0.2 mg/dL (Negative); pH Urine 7.5 (5-7)
[2024-06-09 09:50] LABS: Add Urine Microscopic? YES; Bacteria Urine None Seen /hpf; Hyaline Casts Urine 0-4 /lpf; Squamous Epithelial Cell Urine 0-5 /hpf (0-5); WBC Urine 0-5 /hpf (0-5)
[2024-06-09] MEDS: iohexol 350 mg/mL 500 mL Btl (per mL) IV (09:54)
[2024-06-09 10:25] VITALS: BP 141/73; PULSE 71; O2SAT 98
[2024-06-09 11:40] VITALS: BP 141/73; PULSE 71; O2SAT 98
[2024-06-09 11:42] VITALS: BP 141/73; PULSE 71; O2SAT 98
== END 2024-06-09 11:46 | disposition home or self-care (01) ==
PROVIDERS: Physician Assistant; Emergency Provider Family Medicine; PCP Nurse Practitioner Family
DX: K21.9 Gastro-esophageal reflux disease without esophagitis (principal); K59.00 Constipation, unspecified; Z87.891 Personal history of nicotine dependence
CPT/HCPCS: 74177; 80053; 81001; 83605; 83690; 85025; 96374; 99285; J2470

== ENCOUNTER → 2024-06-11 14:09 | Outpatient (BNVA) | payer MEDICARE, MEDICAID, SELFPAY | PROVIDERS: PCP Nurse Practitioner Family; Visit Provider Surgery | DX: Z09 Encounter for follow-up examination after completed treatment for conditions other than malignant neoplasm (principal) | CPT/HCPCS: 99214 ==

== ENCOUNTER → 2024-07-16 08:37 | Outpatient (BNVA) | payer MEDICARE, MEDICAID, SELFPAY | PROVIDERS: PCP Nurse Practitioner Family; Visit Provider Surgery | DX: R03.0 Elevated blood-pressure reading, without diagnosis of hypertension (principal); K52.9 Noninfective gastroenteritis and colitis, unspecified | CPT/HCPCS: 99214 ==

== ENCOUNTER → 2024-09-24 07:50 | Outpatient (BNVA) | payer MEDICARE, MEDICAID, SELFPAY | PROVIDERS: PCP Nurse Practitioner Family; Visit Provider Podiatrist Foot & Ankle Surgery | DX: D64.9 Anemia, unspecified (principal); M72.2 Plantar fascial fibromatosis; M21.41 Flat foot [pes planus] (acquired), right foot; M21.42 Flat foot [pes planus] (acquired), left foot | CPT/HCPCS: 99213 ==

== ENCOUNTER → 2024-11-24 06:53 | Outpatient (BNVA) | payer MEDICARE, MEDICAID, SELFPAY | PROVIDERS: PCP Nurse Practitioner Family; Visit Provider Podiatrist Foot & Ankle Surgery | DX: M79.671 Pain in right foot (principal); M79.672 Pain in left foot; D64.9 Anemia, unspecified; M72.2 Plantar fascial fibromatosis; M20.41 Other hammer toe(s) (acquired), right foot; M20.42 Other hammer toe(s) (acquired), left foot; M21.6X9 Other acquired deformities of unspecified foot | CPT/HCPCS: 99213 ==

== ENCOUNTER 2024-12-23 10:15 | Outpatient (CLI) | payer MEDICARE, MEDICAID, SELFPAY | END 2024-12-23 10:16 | disposition home or self-care (01) | LOC: SPT 10:16 | PROVIDERS: PCP Nurse Practitioner Family; Visit Provider Podiatrist Foot & Ankle Surgery | DX: Z46.89 Encounter for fitting and adjustment of other specified devices (principal); M72.2 Plantar fascial fibromatosis; Q82.8 Other specified congenital malformations of skin; M25.80 Other specified joint disorders, unspecified joint; M21.70 Unequal limb length (acquired), unspecified site | CPT/HCPCS: L3030 ==

== ENCOUNTER → 2025-02-23 07:26 | Outpatient (BNVA) | payer MEDICARE, MEDICAID, SELFPAY | PROVIDERS: PCP Nurse Practitioner Family; Visit Provider Podiatrist Foot & Ankle Surgery | DX: L60.8 Other nail disorders (principal); D64.9 Anemia, unspecified; M72.2 Plantar fascial fibromatosis; M20.41 Other hammer toe(s) (acquired), right foot; M20.42 Other hammer toe(s) (acquired), left foot; M21.6X9 Other acquired deformities of unspecified foot; M21.6X1 Other acquired deformities of right foot; M21.6X2 Other acquired deformities of left foot | CPT/HCPCS: 99213 ==

== ENCOUNTER → 2025-05-06 07:59 | Outpatient (BNVA) | payer OTHER, MEDICAID, SELFPAY | PROVIDERS: PCP Nurse Practitioner Family; Visit Provider Podiatrist Foot & Ankle Surgery | DX: L60.8 Other nail disorders (principal); D64.9 Anemia, unspecified; M72.2 Plantar fascial fibromatosis; M20.41 Other hammer toe(s) (acquired), right foot; M20.42 Other hammer toe(s) (acquired), left foot; M21.6X9 Other acquired deformities of unspecified foot; M21.6X1 Other acquired deformities of right foot; M21.6X2 Other acquired deformities of left foot | CPT/HCPCS: 99213 ==

== ENCOUNTER 2025-06-09 14:36 | Oncology outpatient (recurring) (ONCR) | payer OTHER, MEDICAID, SELFPAY | END 2025-06-28 23:59 | disposition home or self-care (01) | LOC: ONCMED 14:36 | PROVIDERS: PCP Nurse Practitioner Family; Visit Provider Internal Medicine Medical Oncology | DX: D64.9 Anemia, unspecified (principal); D70.9 Neutropenia, unspecified; K29.70 Gastritis, unspecified, without bleeding; R63.4 Abnormal weight loss; Z68.1 Body mass index [BMI] 19.9 or less, adult | CPT/HCPCS: 99205 ==

== ENCOUNTER → 2025-07-28 07:53 | Outpatient (BNVA) | payer OTHER, MEDICAID, SELFPAY | PROVIDERS: PCP Nurse Practitioner Family; Visit Provider Podiatrist Foot & Ankle Surgery | DX: L85.1 Acquired keratosis [keratoderma] palmaris et plantaris (principal); L60.8 Other nail disorders; D64.9 Anemia, unspecified; M72.2 Plantar fascial fibromatosis; M20.41 Other hammer toe(s) (acquired), right foot; M20.42 Other hammer toe(s) (acquired), left foot; M21.6X9 Other acquired deformities of unspecified foot; R61 Generalized hyperhidrosis; M21.6X1 Other acquired deformities of right foot; M21.6X2 Other acquired deformities of left foot | CPT/HCPCS: 17110; 99213 ==